=== PATIENT | female | born 1990 | race Caucasian/White ===

== ENCOUNTER 2019-07-04 22:18 | Emergency (ER) | payer OTHER ==
[2019-07-04 22:25] VITALS: BP 138/82; PULSE 131; TEMP 98.3; BMI 33.6
[2019-07-05] MEDS ORDERED: ALBUTEROL SO4 2.5/IPRATROPIUM 0.5 INH SOL 3 ML VIAL.NEB. NEB ONE ×2 (00:23→00:59)
--- NOTE | 2019-07-05 00:48 | PDOC ---
History of Present Illness - General Chief Complaint: Asthma Stated Complaint: ASTHMA History Source: Patient Exam Limitations: No Limitations - History of Present Illness Initial Comments: 07/05/19 00:45 29F pmh of asthma, never admitted/intubated, last asthma attack years ago, never on steroids. Patient was USOH yesterday, this evening she started feeling sob with a dry cough. She states that the sensation matched prior asthma attacks. She self administered multiple doses from her MDI and once from her nebulizer. Endorsing palpitations after medicating. Denies cough/ congestion, f/c, n/v, d/c, no sick contacts, recent travel. Is this a multiple visit Asthma Patient?: No Timing/Duration: 4-6 hours Severity: moderate Associated Symptoms: reports: cough, shortness of breath. denies: chest pain, diaphoresis, fever/chills, headaches, loss of appetite, malaise, nausea/vomiting Past History - Travel Traveled outside of the country in the last 30 days: No - Past Medical History Allergies/Adverse Reactions: Allergies Allergy/AdvReac Type Severity Reaction Status Date / Time No Known Allergies Allergy Verified 07/04/19 22:25 Home Medications: Ambulatory Orders Albuterol Sulfate Inhaler - [Ventolin HFA Inhaler -] 1 - 2 inh PO Q4H PRN #1 inhaler 07/05/19 Dexamethasone 12 mg PO ONCE #2 tablet 07/05/19 Asthma: Yes COPD: No - Psycho Social/Smoking Cessation Hx Smoking History: Never smoked Review of Systems - Review of Systems Constitutional: No: Symptoms Reported, See HPI, Chills, Diaphoresis, Fever, Loss of Appetite, Malaise, Night Sweats, Weakness, Weight Stable, Unintentional Wgt. Loss, Unexplained wgt Loss, Other HEENTM: No: Symptoms Reported, See HPI, Eye Pain, Blurred Vision, Tearing, Recent change in vision, Double Vision, Cataracts, Ear Pain, Ocular Prothesis, Ear Discharge, Nose Pain, Nose Congestion, Tinnitus, Nose Bleeding, Hearing Loss , Throat Pain, Throat Swelling, Mouth Pain, Dental Problems, Difficulty Swallowing, Mouth Swelling, Other Respiratory: Yes: See HPI Cardiac (ROS): No: Symptoms Reported, See HPI, Chest Pain, Edema, Irregular Heart Rate, Lightheadedness, Palpitations, Syncope, Chest Tightness, Other ABD/GI: No: Symptoms Reported, See HPI, Abdominal Distended, Abd. Pain w/ defecation, Blood Streaked Bowels, Constipated, Diarrhea, Difficulty Swallowing , Nausea, Poor Appetite, Poor Fluid Intake, Rectal Bleeding, Vomiting, Indigestion, Abdominal cramping, Tarry Stools, Other : No: Symptoms Reported, See HPI, Burning, Dysuria, Discharge, Frequency, Flank Pain, Hematuria, Incontinence, Pain, Urgency, Testicular Mass, Testicular Swelling, Lesions, Testicular Pain, Other Musculoskeletal: No: Symptoms Reported, See HPI, Back Pain, Gout, Joint Pain, Joint Swelling, Muscle Pain, Muscle Weakness, Neck Pain, Joint Stiffness, Other Integumentary: No: Symptoms Reported, See HPI, Bruising, Change in Color, Change in Hair/Nails, Dryness, Erythema, Flushing, Lesions, Lumps, Pallor, Pruritus, Rash, Sweating, Other Neurological: No: Symptoms reported, See HPI, Headache, Numbness, Paresthesia, Pre-Existing Deficit, Seizure, Tingling, Tremors, Weakness, Unsteady Gait, Ataxia, Dizziness, Other *Physical Exam - Vital Signs Last Vital Signs Temp Pulse Resp BP Pulse Ox 98.3 F 131 H 19 138/82 95 07/04/19 22:23 07/04/19 22:23 07/04/19 22:23 07/04/19 22:23 07/04/19 22:23 - Physical Exam 07/05/19 00:45 GENERAL: Well-appearing, well-nourished. No apparent distress. AOx3 HEENT: Normocephalic, atraumatic. PERRL, EOM intact. CARDIOVASCULAR: Normal S1, S2. HR 96 on exam PULMONARY: Diffuse faint wheezes, good air movement, no retractions, normal wob ABDOMEN: Soft, non-distended, non-tender. EXTREMITIES: Normal ROM in all four extremities. No gross deformities. SKIN: Warm, dry. No rash NEUROLOGICAL: No focal neurological deficits. Medical Decision Making - Medical Decision Making 07/05/19 00:48 29F hx asthma here with likely asthma attack starting this evening, no infectious risk factors, PE unlikely symptomatic tx re-eval dispo per clinical course Significant improvement in symptoms after treatment, no hypoxia, ambulating w/o dyspnea Patient states she feels much more comfortable Rx for new albuterol MDI and second dose of dex sent to pharmacy of choice [place], f/u pcp, return instructions given Discharge - Discharge Information Problems reviewed: Yes Clinical Impression/Diagnosis: Active asthma Condition: Improved Disposition: HOME - Admission No - Additional Discharge Information Prescriptions: Albuterol Sulfate Inhaler - [Ventolin HFA Inhaler -] 1 - 2 inh PO Q4H PRN #1 inhaler PRN Reason: Short Of Breath/Wheezing Dexamethasone 12 mg PO ONCE #2 tablet - Follow up/Referral Referrals: Izabella Shipman MD [Primary Care Provider] - - Patient Discharge Instructions Patient Printed Discharge Instructions: Asthma -- Adult Additional Instructions: Please make sure to take the medication called dexamethasone. If you have a recurrence of symptoms, please make sure to use your inhaler as instructed. If you require it more frequently than every 4 hours, please be re-evaluated. - Post Discharge Activity
[2019-07-05] MEDS ORDERED: DEXAMETHASONE 4 MG TABLET (FP) PO STA (01:07)
[2019-07-05] MEDS ORDERED: DEXAMETHASONE SOD PHOSPHATE 10 MG/1 ML VIAL ONE (01:15)
[2019-07-05] MEDS ORDERED: ALBUTEROL SO4 0.083% IH SOL 2.5 MG/3 ML VIAL.NEB. NEB ONE (01:15)
[2019-07-05] MEDS: ALBUTEROL SO4 0.083% IH SOL 2.5 MG/3 ML VIAL.NEB. NEB SCH ×2 (01:26→01:33)
== END 2019-07-05 02:31 | disposition home or self-care (01) ==
LOC: JER 22:18
PROC: 3E0F7GC Introduction of Other Therapeutic Substance into Respiratory Tract, Via Natural or Artificial Opening (ICD-10-PCS; principal; 2019-07-04)
PROC: 3E0F7GC Introduction of Other Therapeutic Substance into Respiratory Tract, Via Natural or Artificial Opening (ICD-10-PCS; 2019-07-04)
DX: J45.901 Unspecified asthma with (acute) exacerbation (principal)
CPT/HCPCS: 99281-25